=== PATIENT | male | born 1975 | race African-American/Black ===

== ENCOUNTER 2024-10-16 20:28 | Emergency (ER) | payer BC | END 2024-10-16 22:48 | disposition home or self-care (01) | LOC: MW.ED 20:28 | DX: J18.9 Pneumonia, unspecified organism (principal); H10.9 Unspecified conjunctivitis; J02.9 Acute pharyngitis, unspecified; Z88.0 Allergy status to penicillin; Z79.899 Other long term (current) drug therapy | CPT/HCPCS: 71046; 87426; 99284; A9270; J8540; Q0144 ==